=== PATIENT | female | born 1975 | race Two or more races ===

== ENCOUNTER → 2017-10-16 | Day surgery (SDC) | payer OTHER ==
[~2017-10-16] VITALS: Ht 165.1 cm; Wt 61.0 kg
[~2017-10-16] MED LIST: ACAR50TA PO; BUPIVACAINE HCL PF 0.5% 10 ML VIAL ONE; CEPH-460 PO; CHLORHEXIDINE GLUCONATE 2 % 1 PACK (2 CLOTHS) TOPICAL PRN; GLYB1.253 PO; GLYB5TAB3 PO; HYDR-3288 PO; HYDROmorphone HCL PF 2 MG/ML VIAL ONE; LACTATED RINGER'S 1000 ML IV PRN; LIDOCAINE HCL 2% 50 ML VIAL ONE; LISI10TA3 PO; METF1000 PO; METF500T PO; METOPROLOL TARTRATE 25 MG TAB PO PRN; MIDAZOLAM HCL 2 MG/2 ML VIAL ONE; MORPHINE SULFATE 4 MG/ML INJ ONE; NEOMYCIN/POLYMYXIN 1 ML G.U. IRRIGANT ONE; ONDANSETRON HCL 4 MG/2 ML VIAL ONE; POVIDONE IODINE 5% (ANTISEPSIS KIT) 4 APPLICATIONS EACH NARE PRN; PROMETHAZINE INJ 25 MG/ML VIAL ONE; SODIUM CHLORID 0.9% 500 ML IV PRN; ceFAZolin 2 GM in NS 100 ML IV SCH; ceFAZolin 2 GM/DEX PREMIX 50 ML IV SCH; ceFAZolin 2 GM/NS PREMIX 100 ML IV SCH
--- NOTE | 2017-10-16 12:20 | MP ---
cc: Oscar Espinoza MD DATE OF OPERATION: 10/16/2017 REOPERATIVE DIAGNOSIS: Left intra-articular distal radius fracture. POSTOPERATIVE DIAGNOSIS: Left carpal tunnel syndrome. PROCEDURE: 1. Left distal radius open reduction internal fixation more than 3 fragments using dorsal bridge plating and bone graft. 2. Left open carpal tunnel release. 3. Use of image intensifier. SURGEON: Oscar Espinoza III, MD PROCEDURE: The patient was brought to the operating room and placed supine on the operating table. After the correct site and side of surgery were verified by members of each team in the room multiple times including the patient myself and after adequate preoperative markings and preoperative consent were verified by every one and after adequate preoperative timeout was performed to everyone's satisfaction, and after adequate general anesthesia was achieved, the left upper extremity was prepped and draped in the traditional sterile surgical fashion. A 50/50 mixture of 2% plain lidocaine and 0.5% plain Marcaine was infiltrated in the skin and subcutaneous tissue in the dorsal aspect, as well as the volar aspect of the hand and wrist and forearm. On the volar side, it was only injected into the base of the palm. The limb was exsanguinated with a gentle Zay wrap and a highly placed well padded axillary tourniquet was inflated to 200 mmHg for a total of 72 minutes. A longitudinally oriented incision at the base of the palm was made and carried down through skin and subcutaneous tissue. Blunt dissection was performed. Bipolar electrocautery was used throughout the case as needed sparingly. However, the transverse carpal ligament was identified and transected in its midline from its proximal-most to its distal-most extent completely freeing the carpal tunnel contents. The nerve was examined and found to be intact, otherwise non-compromised. There were no other anatomic abnormalities. No mass effects were identified. Thorough irrigation with saline was performed. The skin edges were reapproximated using running 4-0 nylon suture. The hand was then placed palm down and 3 incisions were made dorsally, one over the third metacarpal and the second one over Pito's tubercle and the third over the radial shaft. Blunt dissection was performed. The third extensor tendon was retracted ulnarly. The third metacarpal was identified and incision made in its periosteum. Blunt dissection was then performed over Pito's tubercle. The third dorsal compartment, which contains the EPL tendon was released and the fracture was visualized. Thorough irrigation was performed. The EPL tendon was completely intact, but there was a hematoma within the sheath. The third incision was then opened and blunt dissection was used to identify the radial shaft and an incision in the dorsal periosteum was also made. Using the [employer] equipment, a dorsal bridge plate was selected and advanced in a retrograde fashion dorsal to the wrist within the capsule and deep to the fourth and fifth dorsal compartments. All tendons were visualized and were not compressed. Thorough irrigation was performed multiple times again right before the insertion of the plate. A screw dorsally was placed into the third metacarpal provisionally verifying its placement. On the dorsal most aspect of the cortex, 2 more screws were placed. Derotation was then performed using the mini C-arm and reduction held as well. Then, a single screw was placed in the radial shaft through the plate holding the hand and wrist without rotation and with near anatomic reduction. The volar tilt was restored. The radial inclination appeared normal and there was ulnar negative variance. There was obvious bony defect and this was then filled with cancellous bone chips. The additional 2 screws proximally were placed as well as a locking screw placed into the largest fragment within the fracture. Pronation and supination was performed and was found to be smooth. Examination within the joint did not reveal any abnormalities. Thorough irrigation was performed multiple times. The skin edges were reapproximated then using deep subcutaneous 4-0 Vicryl sutures and then skin edges reapproximated using running and interrupted 4-0 nylon. The axillary tourniquet was released prior to the closure. There was no hematoma formation. The hand and all the fingers became immediately soft, pink and warm and had brisk capillary refill of less than 2 seconds. Betadine, Adaptic dressing was applied on top of the wound. Additional local anesthetic was injected into the wrist joint for postoperative pain control. A well-padded, well-molded short-arm splint was made in the usual fashion. The patient was awakened from anesthesia and transported to the Postanesthesia Care Unit awake and in stable condition at the end of the case. MD EARL Malin/LAVELL , 11:53 AM , 12:18 PM
[2017-10-16 15:20] VITALS: BP 149/90; PULSE 93; RESP 16; TEMP 98; O2SAT 96
== END | disposition home or self-care (01) ==
LOC: PHSDC 07:29
PROVIDERS: ATTEND Orthopaedic Surgery Hand Surgery
DX: S52.572A Other intraarticular fracture of lower end of left radius, initial encounter for closed fracture (principal); G56.02 Carpal tunnel syndrome, left upper limb; E11.9 Type 2 diabetes mellitus without complications; I10 Essential (primary) hypertension
CPT/HCPCS: 01830; 25609; 64721; 76000; C1713; J0690; J1170; J2250; J2270; J2405; J2550; J3010; J7120